=== PATIENT | male | born 1970 | race Caucasian/White ===

== ENCOUNTER 2023-05-28 17:59 | Observation (INO) ==
--- NOTE | 2023-05-28 18:18 | DR.SOBA ---
HPI Time Seen Time Seen by Provider: 05/28/23 18:16 COVID-19 Coronavirus risk:travel/contact w/high risk person: No Has patient experienced Coronavirus symptoms: No Reviewed Nurses Notes Reviewed: Yes PMH Travel Risk Coronavirus risk:travel/contact w/high risk person: No Has patient experienced Coronavirus symptoms: No ROS Review of Systems Constitutional: No Symptoms Reported Eyes: No Symptoms Reported ENTM: No Symptoms Reported Respiratoy: No Symptoms Reported Cardiovascular: No Symptoms Reported Gastrointestinal/Abdominal: No Symptoms Reported Genitourinary: No Symptoms Reported Neurological: No Symptoms Reported Musculoskeletal: No Symptoms Reported Integumentary: No Symptoms Reported Hematologic/Lymphatic: No Symptoms Reported Endocrine: No Symptoms Reported Psychiatric: No Symptoms Reported All Other Systems: Reviewed and Negative PE Vital Signs Vitals: Vital Signs Temperature 98.5 F Pulse Rate 99 Pulse Rate 97 Pulse Rate 103 Pulse Rate 102 Pulse Rate 100 Pulse Rate 104 Pulse Rate 104 Pulse Rate 108 Pulse Rate 111 Pulse Rate 108 Pulse Rate 107 Pulse Rate 105 Pulse Rate 105 Pulse Rate 102 Pulse Rate 106 Pulse Rate 99 Pulse Rate 96 Pulse Rate 93 Pulse Rate 105 Pulse Rate 98 Pulse Rate 100 Pulse Rate 101 Pulse Rate 107 Respiratory Rate 22 Respiratory Rate 19 Respiratory Rate 34 Respiratory Rate 27 Respiratory Rate 28 Respiratory Rate 29 Respiratory Rate 26 Respiratory Rate 24 Respiratory Rate 25 Respiratory Rate 25 Respiratory Rate 26 Respiratory Rate 28 Respiratory Rate 25 Respiratory Rate 26 Respiratory Rate 29 Respiratory Rate 23 Respiratory Rate 25 Respiratory Rate 21 Respiratory Rate 29 Respiratory Rate 20 Respiratory Rate 21 Respiratory Rate 22 Respiratory Rate 22 Blood Pressure 119/60 Blood Pressure 127/74 Blood Pressure 139/69 Blood Pressure 140/66 Blood Pressure 129/68 Blood Pressure 137/65 Blood Pressure 149/70 Blood Pressure 158/74 Blood Pressure 152/72 Blood Pressure 142/71 Blood Pressure 184/87 O2 Sat by Pulse Oximetry 93 O2 Sat by Pulse Oximetry 92 O2 Sat by Pulse Oximetry 93 O2 Sat by Pulse Oximetry 92 O2 Sat by Pulse Oximetry 91 O2 Sat by Pulse Oximetry 92 O2 Sat by Pulse Oximetry 93 O2 Sat by Pulse Oximetry 93 O2 Sat by Pulse Oximetry 94 O2 Sat by Pulse Oximetry 97 O2 Sat by Pulse Oximetry 98 O2 Sat by Pulse Oximetry 95 O2 Sat by Pulse Oximetry 95 O2 Sat by Pulse Oximetry 95 O2 Sat by Pulse Oximetry 96 O2 Sat by Pulse Oximetry 97 O2 Sat by Pulse Oximetry 96 O2 Sat by Pulse Oximetry 93 O2 Sat by Pulse Oximetry 92 O2 Sat by Pulse Oximetry 90 O2 Sat by Pulse Oximetry 91 O2 Sat by Pulse Oximetry 92 O2 Sat by Pulse Oximetry 89 General Limitations: No Limitations General Appearance: Alert and In No Apparent Distress Head Head Exam: Normal Inspection Eyes Eye exam: Normal Appearance ENT ENT Exam: Normal Exam Neck Neck Exam: Normal Inspection Chest Chest Inspection: Normal Inspection Respiratory Respiratory Exam: Normal Lung Sounds Bilat Cardiovascular Cardiovascular Exam: Regular Rate Abdominal Exam Abdominal Exam: Normal Inspection Extremities Extremities Exam: Normal Inspection Back Back Exam: Normal Inspection Psychiatric Psychiatric Exam: Normal Affect Skin Skin Exam: Warm and Intact ROR Labs Reviewed 05/28/23 18:30 05/28/23 18:30 Laboratory: WBC 13.0 X10^3/uL (3.6-10.0) H 05/28/23 18:30 RBC 4.68 X10^6/uL (4.7-6.0) L 05/28/23 18:30 Hgb 15.2 g/dL (13.5-18.0) 05/28/23 18:30 Hct 45.0 % (42.0-54.0) 05/28/23 18:30 MCV 96.1 fL (80.0-100.0) 05/28/23 18:30 MCH 32.5 pg (27.0-34.0) 05/28/23 18:30 MCHC 33.8 g/dL (33.0-35.0) 05/28/23 18:30 RDW 14.3 % (11.6-16.5) 05/28/23 18:30 Plt Count 164 X10^3/uL (150.0-450.0) 05/28/23 18:30 MPV 9.2 fL (7.4-11.0) 05/28/23 18:30 Neut % (Auto) 87.0 % (42.0-75.0) H 05/28/23 18:30 Lymph % (Auto) 5.1 % (21.0-51.0) L 05/28/23 18:30 [place] % (Auto) 6.5 % (0.0-13.0) 05/28/23 18:30 Eos % (Auto) 0.9 % (0.9-2.9) 05/28/23 18:30 Baso % (Auto) 0.5 % (0.2-1.0) 05/28/23 18:30 Neut # (Auto) 11.3 x10^3/uL (2.2-4.8) H 05/28/23 18: Lymph # (Auto) 0.7 X10^3/uL (1.3-2.9) L 05/28/23 18:30 [place] # (Auto) 0.8 x10^3/uL (0.3-0.8) 05/28/23 18: Eos # (Auto) 0.1 x10^3/uL (0.0-0.2) 05/28/23 18:30 Baso # (Auto) 0.1 X10^3/uL (0.0-0.1) 05/28/23: Absolute Nucleated RBC 0.0 /100WBC 05/28/23: D-Dimer 0.30 ug/ml (0.0-0.57) 05/28/23 18: Sample Site [place] 05/28/23: ABG pH 7.430 (7.35-7.45) 05/28/23: ABG pCO2 39.0 mmHg (35.0-45.0) 05/28/23: ABG pO2 57.0 mmHg (80.0-100.0) L 05/28/23: ABG HCO3 25.9 mmol/L (22-26) 05/28/23: ABG O2 Saturation 90.0 % (90-100) 05/28/23 ABG Base Excess 1.5 mmol/L (-2.0-2.0) 05/28/23: Enoc Test Pos 05/28/23: A-a Gradient 44.0 mmHg 05/28/23: FiO2 21.0 05/28/23: Blood Gas Comments Evangelina well ah 05/28/23: Sodium 139 mmol/L (136-145) 05/28/23 18:30 Corrected Sodium TNP 05/28/23: Potassium 4.0 mmol/L (3.5-5.1) 05/28/23: Chloride 103 mmol/L (98-107) 05/28/23 18:30 Carbon Dioxide 26.7 mmol/L (21-32) 05/28/23 18:30 BUN 8 mg/dL (7-18) 05/28/23 18:30 Creatinine 0.97 mg/dL (0.70-1.30) 05/28/23 18:30 Est GFR (MDRD) Af Amer > 60 (>60) 05/28/23 18:30 Est GFR (MDRD) Non-Af > 60 (>60) 05/28/23 18:30 Glucose 98 mg/dL (65-99) 05/28/23 18:30 Calcium 8.6 mg/dL (8.5-10.1) 05/28/23 18:30 Corrected Calcium TNP 05/28/23 18:30 Total Bilirubin 0.90 mg/dL (0.2-1.0) 05/28/23 18:30 AST 14 Units/L (15-37) L 05/28/23 18:30 ALT 20 Units/L (12-78) 05/28/23 18:30 Alkaline Phosphatase 85 Units/L (46-116) 05/28/23 18:30 Creatine Kinase 124 Units/L (39-308) 05/28/23 18:30 Troponin I High Sens < 4.0 ng/L (4.0-60.0) L 05/28/23 18:30 B-Natriuretic Peptide 11.2 pg/mL (0-79) 05/28/23 18:30 Total Protein 6.9 g/dL (6.4-8.2) 05/28/23 18:30 Albumin 3.6 g/dL (3.4-5.0) 05/28/23 18:30 Globulin 3.3 g/dL (2.5-4.5) 05/28/23 18:30 Albumin/Globulin Ratio 1.1 Ratio (1.1-2.1) 05/28/23 18:30 Specimen Type Clean catch urine 05/28/23 20:14 Urine Color Dark yellow (YELLOW) 05/28/23 20:14 Urine Appearance Clear (CLEAR) 05/28/23 20:14 Urine pH 6.0 (5.0 - 8.0) 05/28/23 20:14 Ur Specific [place] 1.020 (1.000-1.030) 05/28/23 20:14 Urine Protein Negative (NEGATIVE) 05/28/23 20:14 Urine Glucose (UA) Negative (NEGATIVE) 05/28/23 20:14 Urine Ketones Negative (NEGATIVE) 05/28/23 20:14 Urine Blood 2+ (NEGATIVE) 05/28/23 20:14 Urine Nitrite Negative (NEGATIVE) 05/28/23 20:14 Urine Bilirubin Negative (NEGATIVE) 05/28/23 20:14 Urine Urobilinogen 2+ (NORMAL) 05/28/23 20:14 Ur Leukocyte Esterase Negative (NEGATIVE) 05/28/23 20:14 Urine RBC 3-5 /HPF (0-3) A 05/28/23 20:14 Urine WBC None seen /HPF (0-5) 05/28/23 20:14 Ur Squamous Epith Cells Rare /HPF (NEGATIVE) 05/28/23 20:14 Urine Bacteria Trace /HPF (NEGATIVE) 05/28/23 20:14 Urine Mucus Few /HPF (NEGATIVE) 05/28/23 20:14 Ur Culture Indicated? No/not indicated 05/28/23 20:14 SARS-CoV-2 (PCR) Negative (NEGATIVE) 05/28/23 18:06 Influenza Type A (PCR) Negative (NEGATIVE) 05/28/23 18:06 Influenza Type B (PCR) Negative (NEGATIVE) 05/28/23 18:06 RSV (PCR) Negative (NEGATIVE) 05/28/23 18:06 Opioid Opioid Risk Tool Age (Tal box if 16-45): No History of Preadolescent Sexual Abuse: No Total: 0 Total Score Risk Category: Low Risk Copyright: Bert HWANG predicting aberrant behaviors Discharge Plan Discharge Plan Patient Disposition: 09 ADMITTED INPATIENT Condition: Stable Orders to Discharge Patient Discharge Orders: Discharge (Routine); Ordered 05/29/23 Ordered By: Inder Huynh
[2023-05-28 18:43] LABS: BASOPHILS # (AUTO) 0.1 X10^3/uL (0.0-0.1); BASOPHILS % (AUTO) 0.5 % (0.2-1.0); EOSINOPHILS # (AUTO) 0.1 x10^3/uL (0.0-0.2); EOSINOPHILS % (AUTO) 0.9 % (0.9-2.9); HEMOGLOBIN 15.2 g/dL (13.5-18.0); LYMPHOCYTES # (AUTO) 0.7 X10^3/uL (1.3-2.9); LYMPHOCYTES % (AUTO) 5.1 % (21.0-51.0); MEAN CORPUSCULAR HEMOGLOBIN 32.5 pg (27.0-34.0); MEAN CORPUSCULAR HGB CONC 33.8 g/dL (33.0-35.0); MEAN CORPUSCULAR VOLUME 96.1 fL (80.0-100.0); MEAN PLATELET VOLUME 9.2 fL (7.4-11.0); MONOCYTES # (AUTO) 0.8 x10^3/uL (0.3-0.8); MONOCYTES % (AUTO) 6.5 % (0.0-13.0); NEUTROPHILS # (AUTO) 11.3 x10^3/uL (2.2-4.8); PLATELET COUNT 164 X10^3/uL (150.0-450.0); RED BLOOD COUNT 4.68 X10^6/uL (4.7-6.0); RED CELL DISTRIBUTION WIDTH 14.3 % (11.6-16.5)
--- NOTE | 2023-05-28 18:45 | EKG ---
Test Reason : CHEST PAIN Blood Pressure : */* mmHG Vent. Rate : 104 BPM Atrial Rate : 104 BPM P-R Int : 168 ms QRS Dur : 86 ms QT Int : 314 ms P-R-T Axes : 75 92 69 degrees QTc Int : 412 ms Sinus tachycardia Rightward axis Borderline ECG Confirmed by Bertin Torrez ([id number]) on 05/29/2023 7:39:31 AM Referred By: Confirmed By: Bertin Torrez
[2023-05-28 18:54] LABS: ALANINE AMINOTRANSFERASE 20 Units/L (12-78); ALBUMIN 3.6 g/dL (3.4-5.0); ALKALINE PHOSPHATASE 85 Units/L (46-116); ASPARTATE AMINO TRANSFERASE 14 Units/L (15-37); BLOOD UREA NITROGEN 8 mg/dL (7-18); CALCIUM 8.6 mg/dL (8.5-10.1); CARBON DIOXIDE 26.7 mmol/L (21-32); CHLORIDE 103 mmol/L (98-107); CREATINE KINASE 124 Units/L (39-308); CREATININE 0.97 mg/dL (0.70-1.30); GLUCOSE 98 mg/dL (65-99); SODIUM 139 mmol/L (136-145); TOTAL PROTEIN 6.9 g/dL (6.4-8.2); eGFR NON BLACK RACES > 60 (>60)
[2023-05-28] MEDS ORDERED: NS 1,000 ML IV 1,000 ML ONE (19:16)
[2023-05-28] MEDS: NS 1,000 ML IV 1,000 ML IV ONE (19:21)
[2023-05-28 19:30] LABS: ABG BASE EXCESS 1.5 mmol/L (-2.0-2.0); ABG HCO3 25.9 mmol/L (22-26)
[2023-05-28 19:31] LABS: ABG ALLEN TEST POS
[2023-05-28] MEDS ORDERED: NS 1,000 ML IV 1,000 ML IV SCH (20:00)
[2023-05-28 20:25] LABS: BILIRUBIN,URINE NEGATIVE (NEGATIVE); BLOOD/HEMOGLOBIN,URINE 2+ (NEGATIVE); GLUCOSE, URINE NEGATIVE (NEGATIVE); KETONES,URINE NEGATIVE (NEGATIVE); LEUKOCYTE ESTERASE ,URINE NEGATIVE (NEGATIVE); NITRITES,URINE NEGATIVE (NEGATIVE); PROTEIN,URINE NEGATIVE (NEGATIVE); UROBILINOGEN,URINE 2+ (NORMAL)
--- NOTE | 2023-05-28 20:25 | RAD ---
EXAM: CHEST, 1 VIEW HISTORY: shortness of breath, cough, chest pain; COMPARISON: No relevant prior studies were available for comparison at the time of interpretation. TECHNIQUE: CHEST, 1 VIEW FINDINGS: Chest: Lines and tubes: Cardiac leads overlie the chest. Mediastinum: Cardiac and mediastinal shadow is within normal limits for size and contour. Pulmonary vessels: No pulmonary vascular congestion. Lung mitchell: No suspicious airspace opacity. Pleura: No effusion. No pneumothorax. Bones and soft tissues: No acute osseous or soft tissue abnormality. IMPRESSION: 1. No acute cardiopulmonary abnormality THIS IS AN ELECTRONICALLY VERIFIED FINAL REPORT 05/28/2023 8:11 PM - Electronically signed by Marco A Navas MD
[2023-05-28 20:31] LABS: APPEARANCE,URINE CLEAR (CLEAR); BACTERIA,URINE TRACE /HPF (NEGATIVE); COLOR,URINE DARK YELLOW (YELLOW); SQUAMOUS EPITHELIAL CELL,UR RARE /HPF (NEGATIVE)
[2023-05-28] MEDS ORDERED: SOLU-Medrol 125 MG VIAL ONE (21:03)
[2023-05-28] MEDS: SOLU-Medrol 125 MG VIAL IVP ONE (21:08)
[2023-05-28] MEDS ORDERED: DUONEB 0.5 MG/3 MG (3 mL) NEB ONE (21:10)
[2023-05-28] MEDS: DUONEB 0.5 MG/3 MG (3 mL) NEB ONE (21:11)
[2023-05-29] MEDS ORDERED: NS 1,000 ML IV 1,000 ML ONE (00:01)
[2023-05-29] MEDS ORDERED: NS 250 ML IV 250 ML IV ONE (00:01)
[2023-05-29] MEDS ORDERED: ZITHROMAX INJ 500 MG VIAL IV ONE (00:01)
[2023-05-29] MEDS: NS 1,000 ML IV 1,000 ML IV SCH (00:08)
[2023-05-29] MEDS: ZITHROMAX INJ 500 MG VIAL 500 MG in NS 250 ML IV 250 ML IV SCH (00:08)
[2023-05-29 01:48] VITALS: BMI 26.5
[2023-05-29] MEDS ORDERED: SOLU-Medrol 40 MG VIAL ONE (04:56)
[2023-05-29] MEDS: SOLU-Medrol 40 MG VIAL IVP SCH (05:11)
[2023-05-29] MEDS: DUONEB 0.5 MG/3 MG (3 mL) NEB SCH (05:41)
[2023-05-29] MEDS: DUONEB 0.5 MG/3 MG (3 mL) NEB ONE (06:41)
[2023-05-29 08:58] VITALS: TEMP 98.1
[2023-05-29 09:20] VITALS: BP 126/67; PULSE 81; RESP 31; O2SAT 87
[2023-05-30] MEDS ORDERED: ZITHROMAX INJ 500 MG VIAL 500 MG in NS 250 ML IV 250 ML IV SCH (01:00)
== END 2023-05-29 10:45 | disposition home or self-care (01) ==
LOC: U 17:59 → ER 17:59 → U 05-29 01:16
PROVIDERS: ADMIT Family Medicine; ATTEND Internal Medicine
DX: R07.89 Other chest pain; J44.1 Chronic obstructive pulmonary disease with (acute) exacerbation; R06.03 Acute respiratory distress; Z20.822 Contact with and (suspected) exposure to COVID-19; R06.02 Shortness of breath; R79.89 Other specified abnormal findings of blood chemistry; J20.8 Acute bronchitis due to other specified organisms; R00.0 Tachycardia, unspecified